=== PATIENT | female | born 1970 | race African-American/Black ===

== ENCOUNTER 2019-05-30 19:21 | Emergency (ER) | payer SELFPAY ==
[2019-05-30] MEDS ORDERED: NA CHLORIDE 0.9% 1,000 ML ONE (20:24)
[2019-05-30] MEDS ORDERED: FAMOTIDINE 20 MG/2 ML VIAL IV ONE (20:35)
--- NOTE | 2019-05-30 20:52 | RAD REPORT ---
EXAM DESCRIPTION: Gregg Single View05/30/2019 8:23 pm CLINICAL HISTORY: cough COMPARISON: none FINDINGS: The lungs appear clear of acute infiltrate. The heart is normal size IMPRESSION: No acute abnormalities displayed
[2019-05-30 20:57] LABS: Absolute Lymphocytes (CBC) 4.3 K/uL (0.7-4.9); Basophils % 0.9 % (0-1.3); Hematocrit 41.1 % (36.0-45.0); MPV 8.3 fL (7.6-11.3); RBC Red Blood Cell Count 4.82 M/uL (3.86-4.86)
--- NOTE | 2019-05-30 20:58 | RAD REPORT ---
EXAM DESCRIPTION: CT - Head Brain Wo Cont - 05/30/2019 8:31 pm CLINICAL HISTORY: Dizziness COMPARISON: None. TECHNIQUE: Computed axial tomography of the head was obtained. IV contrast was not requested. All CT scans are performed using dose optimization technique as appropriate and may include automated exposure control or mA/KV adjustment according to patient size. FINDINGS: An intracranial bleed is not seen . The ventricles are normal in caliber. No extra-axial fluid collection is noted. Fluid within the sinuses/ mastoids is not seen. IMPRESSION: No acute intracranial abnormality is seen. If patient's symptoms persist MRI of the bra in would be recommended.
[2019-05-30 21:04] LABS: Barbiturates NEGATIVE (NEGATIVE); Benzodiazepines NEGATIVE (NEGATIVE); Cocaine NEGATIVE (NEGATIVE); METHAMPHETAM NEGATIVE (NEGATIVE); Methadone NEGATIVE (NEGATIVE); Opiates NEGATIVE (NEGATIVE); Phencyclidine NEGATIVE (NEGATIVE); THC Cannibis NEGATIVE (NEGATIVE)
[2019-05-30 21:10] LABS: Protime INR 1.03
[2019-05-30 21:25] LABS: ALT/SGPT 25 U/L (12-78); AST/SGOT 8 U/L (15-37); Albumin 3.3 g/dL (3.4-5.0); Alkaline Phosphatase 160 U/L (45-117); BUN Blood Urea Nitrogen 12 mg/dL (7-18); Bicarbonate 27 mmol/L (21-32); Bilirubin Direct < 0.1 mg/dL (0-0.2); Bilirubin Total 0.2 mg/dL (0.2-1.0); Glucose Level 378 mg/dL (74-106); Lipase 126 U/L (73-393); Magnesium 2.4 mg/dL (1.8-2.4); NT PRO-BNP 10 pg/mL (<125); Potassium 4.4 mmol/L (3.5-5.1); Protein, Total 8.1 g/dL (6.4-8.2); Sodium Level 137 mmol/L (136-145); Troponin (Emerg Dept Use Only) < 0.02 ng/mL (0.0-0.045)
--- NOTE | 2019-05-30 21:55 | ER ---
Nurse's Notes [facility] Name: Myla Tejeda Age: 49 yrs Sex: Female : 1970 Arrival Date: 05/30/2019 Time: 19:23 Bed 13 Private MD: Diagnosis: Dizziness and giddiness;Functional dyspepsia;Cholelithiasis Presentation: 05/30 19:28 Presenting complaint: Patient states: she has been feeling dizzy since Friday every bb time she gets up she feels like she is going to faint. Pt was at home when symptoms started. Pt states she thinks she may have parasites she noticed something in her stool but she is not sure, She has noticed this for several months. Transition of care: patient was not received from another setting of care. Onset of symptoms was May 26, 2019. Risk Assessment: Do you want to hurt yourself or someone else? Patient reports no desire to harm self or others. Initial Sepsis Screen: Does the patient meet any 2 criteria? No. Patient's initial sepsis screen is negative. Does the patient have a suspected source of infection? No. Patient's initial sepsis screen is negative. Care prior to arrival: None. 19:28 Method Of Arrival: Ambulatory bb 19:28 Acuity: GINA 3 bb Historical: - Allergies: 19:32 Codeine; bb - Home Meds: 19:32 None [Active]; bb - PMHx: 19:32 None; bb - PSHx: 19:32 Tubal ligation; bb - Immunization history:: Adult Immunizations up to date. - Social history:: Smoking status: Patient/guardian denies using tobacco. - Family history:: not pertinent. - Ebola Screening: : No symptoms or risks identified at this time. Screenin:52 Abuse screen: Denies threats or abuse. Nutritional screening: No deficits noted. ea Tuberculosis screening: No symptoms or risk factors identified. Fall Risk None identified. Assessment: 20:51 General: Appears uncomfortable, Behavior is appropriate for age. Pain: Denies pain. ea Neuro: Level of Consciousness is awake, alert, obeys commands, Oriented to person, place, time, situation, Reports dizziness. Cardiovascular: Patient's skin is warm and dry. Respiratory: Airway is patent Respiratory effort is even, unlabored, Respiratory pattern is regular, symmetrical. Derm: Skin is pink, warm \T\ dry. 21:35 Reassessment: Patient and/or family updated on plan of care and expected duration. Pain ea level reassessed. Patient is alert, oriented x 3, equal unlabored respirations, skin warm/dry/pink. 22:49 Reassessment: Patient and/or family updated on plan of care and expected duration. Pain ea level reassessed. Patient is alert, oriented x 3, equal unlabored respirations, skin warm/dry/pink. Discharge instruction given to patient, verbalized the understanding of instruction. Pt left ED ambulatory accompanied by family Patient states feeling better. Vital Signs: 19:32 BP 123 / 74; Pulse 87; Resp 16 S; Temp 98(O); Pulse Ox 98% on R/A; Weight 77.11 kg (R); bb Height 5 ft. 1 in. (154.94 cm) (R); Pain 8/10; 20:47 BP 105 / 66 Supine; Pulse 77; mt 20:47 BP 116 / 68 Sitting; Pulse 90; mt 20:47 BP 110 / 46 Standing; Pulse 80; mt 21:00 BP 108 / 60; Pulse 78; Resp 18; Pulse Ox 99% ; ea 22:45 BP 119 / 73; Pulse 68; Resp 18; Temp 98; Pulse Ox 99% on R/A; ea 19:32 Body Mass Index 32.12 (77.11 kg, 154.94 cm) bb ED Course: 19:23 Patient arrived in ED. ds1 19:31 Triage completed. bb 19:32 Arm band placed on Patient placed in an exam room, on a stretcher, on pulse oximetry. bb Family accompanied patient. 19:39 EKG done, by ED staff, reviewed by Tobias Moreno MD. mt 20:05 Tobias Moreno MD is Attending Physician. azar 20:13 Saumya Morley, RODERICK is Primary Nurse. ea 20:21 XRAY Chest (1 view) In Process Unspecified. EDMS 20:31 CT Head Brain wo Cont In Process Unspecified. EDMS 20:31 CT completed. Patient tolerated procedure well. Patient moved back from CT. bq 20:52 Patient has correct armband on for positive identification. Bed in low position. Call ea light in reach. 21:29 US Abdomen Limited In Process Unspecified. EDMS 21:48 IV discontinued, intact, bleeding controlled, No redness/swelling at site. Pressure ea dressing applied. 21:55 Alireza Cuba MD is Referral Physician. [facility] 22:39 No provider procedures requiring assistance completed. ea Administered Medications: 20:50 Drug: Pepcid 20 mg Route: IVP; Site: right antecubital; ea 22:37 Follow up: Response: No adverse reaction ea 20:51 Drug: NS 0.9% 1000 ml Route: IV; Rate: 1 bolus; Site: right antecubital; ea 21:30 Follow up: Response: No adverse reaction; IV Status: Completed infusion; IV Intake: ea 1000ml 22:10 Drug: Insulin Regular Human 10 units {Co-Signature: (Aby Glaser).} Route: IVP; ea Site: right antecubital; 22:38 Follow up: Response: No adverse reaction ea Intake: 21:30 IV: 1000ml; Total: 1000ml. ea Outcome: 21:55 Discharge ordered by . [facility] 22:51 Discharged to home ambulatory, with family. cassy 22:51 Condition: stable 22:51 Discharge instructions given to patient, Instructed on discharge instructions, follow up and referral plans. medication usage, Demonstrated understanding of instructions, follow-up care, medications, Prescriptions given X 3. 22:54 Patient left the ED. ea Addendum: 06/04/2019 16:54 Addendum: Culture Results: Positive urine culture. Patient was not prescribed i w antibiotics at discharge. Report given to HARRY for further evaluation and then to bench molder for follow up with patient. Phone call Attempt #1 pt not having urinary s/s , no further action needed. Signatures: Dispatcher [employer] [facility] Tobias Moreno MD MD cha Quilty, Betty bq Sanford, Demi ds1 Shea Adkins RN RN bb Williams, Irene, RN RN iw Thompson, Moriah Saumya Tan RN RN ea Winsy Habalo wh
--- NOTE | 2019-05-30 21:56 | EDPHYS ---
Physician Documentation [facility] Name: Mlya Tejeda Age: 49 yrs Sex: Female : 1970 Arrival Date: 05/30/2019 Time: 19:23 Bed 13 Private MD: ED Physician Tobias Moreno HPI: 05/30 20:23 This 49 yrs old Black Female presents to ER via Ambulatory with complaints of Dizziness.azar 20:23 The patient presents with dizziness, generalized weakness. Onset: The symptoms/episode azar began/occurred 3 day(s) ago. Context: occurred at an unknown location. Associated signs and symptoms: Pertinent positives: abdominal pain. Severity of symptoms: At their worst the symptoms were mild moderate in the emergency department the symptoms are unchanged. Patient's baseline: Neuro: alert and fully oriented. The patient has not experienced similar symptoms in the past. Historical: - Allergies: 19:32 Codeine; bb - Home Meds: 19:32 None [Active]; bb - PMHx: 19:32 None; bb - PSHx: 19:32 Tubal ligation; bb - Immunization history:: Adult Immunizations up to date. - Social history:: Smoking status: Patient/guardian denies using tobacco. - Family history:: not pertinent. - Ebola Screening: : No symptoms or risks identified at this time. ROS: 20:23 Constitutional: Negative for fever, chills, and weight loss, Eyes: Negative for injury, azar pain, redness, and discharge, ENT: Negative for injury, pain, and discharge, Neck: Negative for injury, pain, and swelling, Cardiovascular: Negative for chest pain, palpitations, and edema, Respiratory: Negative for shortness of breath, cough, wheezing, and pleuritic chest pain, Back: Negative for injury and pain, : Negative for injury, bleeding, discharge, and swelling, MS/Extremity: Negative for injury and deformity, Skin: Negative for injury, rash, and discoloration, Neuro: Negative for headache, weakness, numbness, tingling, and seizure, Psych: Negative for depression, anxiety, suicide ideation, homicidal ideation, and hallucinations, Allergy/Immunology: Negative for hives, rash, and allergies, Endocrine: Negative for neck swelling, polydipsia, polyuria, polyphagia, and marked weight changes, Hematologic/Lymphatic: Negative for swollen nodes, abnormal bleeding, and unusual bruising. 20:23 Abdomen/GI: Positive for abdominal pain, of the epigastric area. Exam: 20:23 Constitutional: This is a well developed, well nourished patient who is awake, alert, azar and in no acute distress. Head/Face: Normocephalic, atraumatic. Eyes: Pupils equal round and reactive to light, extra-ocular motions intact. Lids and lashes normal. Conjunctiva and sclera are non-icteric and not injected. Cornea within normal limits. Periorbital areas with no swelling, redness, or edema. ENT: Nares patent. No nasal discharge, no septal abnormalities noted. Tympanic membranes are normal and external auditory canals are clear. Oropharynx with no redness, swelling, or masses, exudates, or evidence of obstruction, uvula midline. Mucous membranes moist. Neck: Trachea midline, no thyromegaly or masses palpated, and no cervical lymphadenopathy. Supple, full range of motion without nuchal rigidity, or vertebral point tenderness. No Meningismus. Chest/axilla: Normal chest wall appearance and motion. Nontender with no deformity. No lesions are appreciated. Cardiovascular: Regular rate and rhythm with a normal S1 and S2. No gallops, murmurs, or rubs. Normal PMI, no JVD. No pulse deficits. Respiratory: Lungs have equal breath sounds bilaterally, clear to auscultation and percussion. No rales, rhonchi or wheezes noted. No increased work of breathing, no retractions or nasal flaring. Back: No spinal tenderness. No costovertebral tenderness. Full range of motion. Skin: Warm, dry with normal turgor. Normal color with no rashes, no lesions, and no evidence of cellulitis. MS/ Extremity: Pulses equal, no cyanosis. Neurovascular intact. Full, normal range of motion. Neuro: Awake and alert, GCS 15, oriented to person, place, time, and situation. Cranial nerves II-XII grossly intact. Motor strength 5/5 in all extremities. Sensory grossly intact. Cerebellar exam normal. Normal gait. 20:23 Abdomen/GI: Inspection: abdomen appears normal, Bowel sounds: normal, Palpation: mild abdominal tenderness, in the epigastric area and right upper quadrant, Liver: no appreciated palpable abnormalities, Hernia: not appreciated. Vital Signs: 19:32 BP 123 / 74; Pulse 87; Resp 16 S; Temp 98(O); Pulse Ox 98% on R/A; Weight 77.11 kg (R); bb Height 5 ft. 1 in. (154.94 cm) (R); Pain 8/10; 20:47 BP 105 / 66 Supine; Pulse 77; mt 20:47 BP 116 / 68 Sitting; Pulse 90; mt 20:47 BP 110 / 46 Standing; Pulse 80; mt 21:00 BP 108 / 60; Pulse 78; Resp 18; Pulse Ox 99% ; ea 22:45 BP 119 / 73; Pulse 68; Resp 18; Temp 98; Pulse Ox 99% on R/A; ea 19:32 Body Mass Index 32.12 (77.11 kg, 154.94 cm) bb MDM: 20:05 [facility] 20:23 Data reviewed: vital signs, nurses notes, lab test result(s), EKG, radiologic studies, [facility] CT scan, plain films, ultrasound. 05/30 20:06 Order name: Basic Metabolic Panel; Complete Time: 21:32 [facility] 05/30 20:06 Order name: CBC with Diff; Complete Time: 21:32 [facility] 05/30 20:06 Order name: LFT's; Complete Time: 21:32 [facility] 05/30 20:06 Order name: Magnesium; Complete Time: 21:32 [facility] 05/30 20:06 Order name: NT PRO-BNP; Complete Time: 21:32 [facility] 05/30 20:06 Order name: PT-INR; Complete Time: 21:32 [facility] 05/30 20:06 Order name: Troponin (emerg Dept Use Only); Complete Time: 21:32 [facility] 05/30 20:06 Order name: XRAY Chest (1 view); Complete Time: 21:32 [facility] 05/30 20:06 Order name: Urine Culture [facility] 05/30 20:07 Order name: UDS; Complete Time: 21:32 [facility] 05/30 20:34 Order name: Lipase; Complete Time: 21:32 EDMS 05/30 20:49 Order name: Urine Dipstick--Ancillary (enter results) [facility] 05/30 20:49 Order name: Urine --Ancillary (enter results) [facility] 05/30 20:06 Order name: EKG; Complete Time: 20:07 [facility] 05/30 20:06 Order name: Cardiac monitoring; Complete Time: 20:19 [facility] 05/30 20:06 Order name: EKG - Nurse/Tech; Complete Time: 20:20 [facility] 05/30 20:06 Order name: IV Saline Lock; Complete Time: 20:20 [facility] 05/30 20:06 Order name: Labs collected and sent; Complete Time: 20:20 [facility] 05/30 20:06 Order name: O2 Per Protocol; Complete Time: 20:20 [facility] 05/30 20:06 Order name: O2 Sat Monitoring; Complete Time: 20:20 [facility] 05/30 20:06 Order name: CT Head Brain wo Cont; Complete Time: 21:32 [facility] 05/30 20:06 Order name: Urine Dipstick-Ancillary (obtain specimen); Complete Time: 20:49 [facility] 05/30 20:22 Order name: US Abdomen Limited [facility] 05/30 20:23 Order name: Orthostatics; Complete Time: 20:47 [facility] Administered Medications: 20:50 Drug: Pepcid 20 mg Route: IVP; Site: right antecubital; ea 22:37 Follow up: Response: No adverse reaction ea 20:51 Drug: NS 0.9% 1000 ml Route: IV; Rate: 1 bolus; Site: right antecubital; ea 21:30 Follow up: Response: No adverse reaction; IV Status: Completed infusion; IV Intake: ea 1000ml 22:10 Drug: Insulin Regular Human 10 units {Co-Signature: saira (Aby Person.} Route: IVP; ea Site: right antecubital; 22:38 Follow up: Response: No adverse reaction ea Disposition: 05/30/19 21:55 Discharged to Home. Impression: Dizziness and giddiness, Functional dyspepsia, Cholelithiasis. - Condition is Stable. - Discharge Instructions: Abdominal Pain, Adult, Dizziness, Cholelithiasis, Cholelithiasis, [id number], Abdominal Pain, Adult, Imtl-[id number], Aspirin and Your Heart, Dizziness, [id number]-[id number]. - Prescriptions for Meclizine 25 mg Oral Tablet - take 1 tablet by ORAL route every 8 hours As needed; 30 tablet. Pepcid 20 mg Oral Tablet - take 1 tablet by ORAL route every 12 hours for 10 days; 20 tablet. Bentyl 20 mg Oral Tablet - take 1 tablet by ORAL route every 6 hours As needed; 20 tablet. - Medication Reconciliation Form, Thank You Letter, Antibiotic Education, Prescription Opioid Use form. - Follow up: Private Physician; When: 2 - 3 days; Reason: Recheck today's complaints, Continuance of care, Re-evaluation by your physician. Follow up: Alireza Cuba MD; When: 2 - 3 days; Reason: Recheck today's complaints, Continuance of care, Re-evaluation by your physician. - Problem is new. - Symptoms have improved. Signatures: Dispatcher [employer] [facility] Tobias Moreno MD MD cha Ballard, Brenda RN RN Saumya Tran RN RN cassy Colindresjaylon [facility] Corrections: (The following items were deleted from the chart) 20:34 20:23 LIPASE+C.LAB.BRZ ordered. [facility] 21:55 21:55 05/30/2019 21:55 Discharged to Home. Impression: Dizziness and giddiness; azar Functional dyspepsia; Cholelithiasis. Condition is Stable. Discharge Instructions: Abdominal Pain, Adult, Dizziness, Abdominal Pain, Adult, [id number], Aspirin and Your Heart, Dizziness, [id number]-[id number]. Prescriptions for Meclizine 25 mg Oral Tablet - take 1 tablet by ORAL route every 8 hours As needed; 30 tablet, Pepcid 20 mg Oral Tablet - take 1 tablet by ORAL route every 12 hours for 10 days; 20 tablet. and Forms are Medication Reconciliation Form, Thank You Letter, Antibiotic Education, Prescription Opioid Use. Follow up: Private Physician; When: 2 - 3 days; Reason: Recheck today's complaints, Continuance of care, Re-evaluation by your physician. Problem is new. Symptoms have improved. azar 22:54 21:55 05/30/2019 21:55 Discharged to Home. Impression: Dizziness and giddiness; ea Functional dyspepsia; Cholelithiasis. Condition is Stable. Discharge Instructions: Abdominal Pain, Adult, Dizziness, Abdominal Pain, Adult, [id number], Aspirin and Your Heart, Dizziness, [id number]. Prescriptions for Meclizine 25 mg Oral Tablet - take 1 tablet by ORAL route every 8 hours As needed; 30 tablet, Pepcid 20 mg Oral Tablet - take 1 tablet by ORAL route every 12 hours for 10 days; 20 tablet. and Forms are Medication Reconciliation Form, Thank You Letter, Antibiotic Education, Prescription Opioid Use. Follow up: Private Physician; When: 2 - 3 days; Reason: Recheck today's complaints, Continuance of care, Re-evaluation by your physician. Follow up: Alireza Cuba; When: 2 - 3 days; Reason: Recheck today's complaints, Continuance of care, Re-evaluation by your physician. Problem is new. Symptoms have improved. azar
[2019-05-30 22:03] LABS: Urine Blood NEGATIVE (NEG); Urine Glucose 2+ (NEG); Urine Protein NEGATIVE (NEG)
[2019-05-30] MEDS ORDERED: INSULIN -REGULAR HUMAN 50 UNIT/0.5 ML ML ONE (22:04)
[2019-05-31 00:31] VITALS: TEMP 98
[2019-05-31 00:34] VITALS: O2SAT 99
[2019-05-31 00:35] VITALS: BP 119/73
--- NOTE | 2019-05-31 08:14 | RAD REPORT ---
EXAM DESCRIPTION: US - Abdomen Exam Limited - 05/30/2019 9:27 pm CLINICAL HISTORY: ABD PAIN COMPARISON: No comparisons FINDINGS: Gallbladder is contracted. Patient was not fasting for the examination. Multiple shadowing gallstones are present within the lumen. No wall thickening or pericholecystic fluid. No common duct stone or biliary tree dilatation identified. IMPRESSION: Multiple gallstones within a contracted gallbladder. No wall thickening or pericholecyst ic fluid. No biliary tree abnormality. Preliminary findings provided at the time of the study.
--- NOTE | 2019-05-31 10:17 | EKG ---
Test Date: 2019-05-30 Test Time: 19:36:20 Crib Attendant: RAMANDEEP MEASUREMENT RESULTS: Intervals: Rate: 86 CO: 150 QRSD: 86 QT: 374 QTc: 447 [place]: P: 51 CO: 150 QRS: 23 T: 16 INTERPRETIVE STATEMENTS: Normal sinus rhythm Low voltage QRS Borderline ECG No previous ECG available for comparison Electronically Signed On 05-31-19 10:17:06 PERMIT AGENT by Guillaume Lugo
== END 2019-05-30 22:54 | disposition home or self-care (01) ==
LOC: ER 19:21
DX: K30 Functional dyspepsia (principal); K80.20 Calculus of gallbladder without cholecystitis without obstruction; Z88.5 Allergy status to narcotic agent
CPT/HCPCS: 36415; 70450; 71045; 76705; 80048; 80076; 80307; 81003; 81025; 83690; 83735; 83880; 84484; 85025; 85610; 87077; 87086; 87088; 87186; 93005; 96361; 96374; 96375; 99284; J7030

== ENCOUNTER 2023-05-07 17:51 | Emergency (ER) | payer SELFPAY ==
[2023-05-07 18:37] LABS: Absolute Lymphocytes (CBC) 4.2 K/uL (0.7-4.9); Hematocrit 42.8 % (36.0-45.0); Lymphocytes % 35.7 % (15.3-44.8); MCV 85.2 fL (80-100); Platelets 314 thou/uL (152-406); RBC Red Blood Cell Count 5.03 M/uL (3.86-4.86)
[2023-05-07] MEDS ORDERED: FAMOTIDINE 20 MG/2 ML VIAL IV ONE (18:41)
[2023-05-07] MEDS ORDERED: NA CHLORIDE 0.9% 1,000 ML ONE (18:41)
[2023-05-07] MEDS ORDERED: MORPHINE 4 MG/ML SYR ONE (18:41)
[2023-05-07 18:52] LABS: Albumin 3.4 g/dL (3.4-5.0); Bilirubin Total 0.4 mg/dL (0.2-1.0); Protein, Total 8.4 g/dL (6.4-8.2); Troponin High Sensitivity 3.1 pg/mL (<58.9)
[2023-05-07] MEDS ORDERED: ONDANSETRON 4 MG/2 ML VIAL ONE ×2 (19:04→19:43)
[2023-05-07 19:31] LABS: Potassium 4.4 mEq/L (3.5-5.1)
[2023-05-07] MEDS ORDERED: METOCLOPRAMIDE 10 MG/2mL INJ ONE (19:54)
[2023-05-07] MEDS ORDERED: DIPHENHYDRAMINE 50 MG/ML VIAL ONE (19:54)
--- NOTE | 2023-05-07 20:09 | RAD REPORT ---
EXAM DESCRIPTION: CTAbdomen Pelvis W Contrast - 05/07/2023 7:53 pm CLINICAL HISTORY: Abdominal pain. ABD PAIN COMPARISON: No comparisons TECHNIQUE: Biphasic CT imaging of the abdomen and pelvis was performed with 100 ml non-ionic IV cont rast. All CT scans are performed using dose optimization technique as appropriate and may include automated exposure control or mA/KV adjustment according to patient size. FINDINGS: The lung bases are clear.Cholelithiasis. The liver, spleen, pancreas, adrenal glands and right kidney are within normal limits. 4 mm stone inf erior calyx left kidney without hydronephrosis No bowel obstruction, free air, free fluid or abscess. The appendix is normal. No evidence of signi ficant lymphadenopathy. No suspicious bony findings. IMPRESSION: Cholelithiasis. 4 mm stone inferior left kidney without hydronephrosis.
--- NOTE | 2023-05-07 21:39 | RAD REPORT ---
EXAM DESCRIPTION: US - Abdomen Exam Limited - 05/07/2023 9:27 pm CLINICAL HISTORY: ruq pain COMPARISON: Abdomen Exam Limited dated 05/30/2019 FINDINGS: The gallbladder demonstrates multiple shadowing stones. No pericholecystic fluid or gallbl adder wall thickening. The common bile duct is normal measuring 4 mm. The liver demonstrates no findings of intrahepatic biliary dilatation. IMPRESSION: Cholelithiasis.
--- NOTE | 2023-05-07 22:32 | EDPHYS ---
Physician Documentation [facility] Name: Myla Tejeda Age: 53 yrs Sex: Female : 1970 Arrival Date: 05/07/2023 Time: 17:51 Bed 12 Private MD: ED Physician Maxi Castaneda HPI: 05/07 18:17 This 53 yrs old Black Female presents to ER via Ambulatory with complaints of Abdominal rt Pain. 18:17 Patient reports an intermittent epigastric pain for the past several months. She states rt that the pain again recurred today after lunch, stating that was more intense than usual and has been more constant. Pain is localized to the epigastrium. Sharp in nature. Denies aggravating or alleviating factors. States that the pain radiates to the back. No other radiation.. 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 - Social history:: Smoking status: Patient denies any tobacco usage or history of. - Family history:: not pertinent. ROS: 18:17 Constitutional: Negative for fever, chills, and weight loss, Cardiovascular: Negative rt for chest pain, palpitations, and edema, Respiratory: Negative for shortness of breath, cough, wheezing, and pleuritic chest pain, MS/Extremity: Negative for injury and deformity, Skin: Negative for injury, rash, and discoloration, Neuro: Negative for headache, weakness, numbness, tingling, and seizure, Psych: Negative for depression, anxiety, suicide ideation, homicidal ideation, and hallucinations, 18:17 Abdomen/GI: Positive for abdominal pain, Negative for nausea, vomiting, and diarrhea, Exam: 18:17 Constitutional: This is a well developed, well nourished patient who is awake, alert, rt and in no acute distress. Head/Face: Normocephalic, atraumatic. Chest/axilla: Normal chest wall appearance and motion. Nontender with no deformity. No lesions are appreciated. Cardiovascular: Regular rate and rhythm with a normal S1 and S2. No gallops, murmurs, or rubs. Normal PMI, no JVD. No pulse deficits. Respiratory: Lungs have equal breath sounds bilaterally, clear to auscultation and percussion. No rales, rhonchi or wheezes noted. No increased work of breathing, no retractions or nasal flaring. Skin: Warm, dry with normal turgor. Normal color with no rashes, no lesions, and no evidence of cellulitis. MS/ Extremity: Pulses equal, no cyanosis. Neurovascular intact. Full, normal range of motion. Neuro: Awake and alert, GCS 15, oriented to person, place, time, and situation. Cranial nerves II-XII grossly intact. Motor strength 5/5 in all extremities. Sensory grossly intact. Cerebellar exam normal. Normal gait. Psych: Awake, alert, with orientation to person, place and time. Behavior, mood, and affect are within normal limits. 18:17 Abdomen/GI: Tenderness to the epigastrium to right upper quadrant with mild guarding, no rebound, distention, 18:44 ECG was reviewed by the Attending Physician. rt Vital Signs: 17:57 BP 165 / 111; Pulse 89; Resp 18; Temp 98.7; Pulse Ox 100% on R/A; Weight 90.72 kg; db Height 5 ft. 1 in. ; Pain 10/10; 22:38 BP 137 / 86; Pulse 74; Resp 16; Pulse Ox 98% ; cp4 17:57 Body Mass Index 37.79 (90.72 kg, 154.94 cm) db 17:57 Pain Scale: Adult db MDM: 18:02 Patient medically screened. rt 22:29 ED course: EXAM DESCRIPTION: US - Abdomen Exam Limited - 05/07/2023 9:27 pm CLINICAL sp4 HISTORY: ruq pain COMPARISON: Abdomen Exam Limited dated 05/30/2019 FINDINGS: The gallbladder demonstrates multiple shadowing stones. No pericholecystic fluid or gallbladder wall thickening. The common bile duct is normal measuring 4 mm. The liver demonstrates no findings of intrahepatic biliary dilatation. IMPRESSION: Cholelithiasis. . ED course: EXAM DESCRIPTION: CTAbdomen Pelvis W Contrast - 05/07/2023 7:53 pm CLINICAL HISTORY: Abdominal pain. ABD PAIN COMPARISON: No comparisons TECHNIQUE: Biphasic CT imaging of the abdomen and pelvis was performed with 100 ml non-ionic IV contrast. All CT scans are performed using dose optimization technique as appropriate and may include automated exposure control or mA/KV adjustment according to patient size. FINDINGS: The lung bases are clear.Cholelithiasis. The liver, spleen, pancreas, adrenal glands and right kidney are within normal limits. 4 mm stone inferior calyx left kidney without hydronephrosis No bowel obstruction, free air, free fluid or abscess. The appendix is normal. No evidence of significant lymphadenopathy. No suspicious bony findings. IMPRESSION: Cholelithiasis. 4 mm stone inferior left kidney without hydronephrosis. . 22:32 Differential Diagnosis altered mental status, sepsis, flu. Data reviewed: vital signs, sp4 nurses notes, old medical records, lab test result(s), radiologic studies, CT scan, ultrasound. Consideration of Admission/Observation Escalation of care including admission/observation considered. ED course: Patient stable for discharge home, pain is gone. 12/ 18:29 Order name: Comprehensive Metabolic Panel; Complete Time: 19:39 EDMS 12/ 18:29 Order name: Troponin High Sensitivity; Complete Time: 19:39 EDMS 12 18:29 Order name: Lipase; Complete Time: 19:39 EDMS 05/07 18:29 Order name: CBC with Automated Diff; Complete Time: 18:48 EDMS 05/07 18:07 Order name: CT Abd/Pelvis - IV Contrast Only; Complete Time: 20:16 rt 12/06 20:01 Order name: US Abdomen Limited; Complete Time: 22:20 rt 12/ 18:07 Order name: EKG; Complete Time: 18:27 rt 12/06 18:07 Order name: IV Saline Lock; Complete Time: 18:35 rt 1206 18:07 Order name: Labs collected and sent; Complete Time: 18:36 rt 1206 18:07 Order name: EKG - Nurse/Tech; Complete Time: 18:36 rt EC:44 Rate is 88 beats/min. Rhythm is regular, Normal Sinus Rhythm with No ectopy. QRS Finger rt is Normal. WV interval is normal. QRS interval is normal. QT interval is normal. No Q waves. T waves are Normal. No ST changes noted. Interpreted by me. Administered Medications: 18:35 Drug: NS 0.9% IV 1000 ml IV at 1 bolus Per protocol; 1000 mL bolus Route: IV; Rate: 1 cp4 bolus; Site: right antecubital; 22:41 Follow up: Response: No adverse reaction; IV Status: Completed infusion cp4 18:35 Drug: Famotidine IVP 20 mg IVP once; dilute with 10 mL 0.9% NaCl; give over 2 minutes cp4 Route: IVP; Site: right antecubital; 22:41 Follow up: Response: No adverse reaction cp4 18:35 Drug: morphine IVP or IV 4 mg IVP once over 4 mins Route: IVP; Infused Over: 4 mins; cp4 Site: right antecubital; 19:45 Follow up: Response: Nausea is increased; Vomiting increased cp4 18:57 Drug: Ondansetron IVP 4 mg IVP once; over 2 minutes Route: IVP; Site: right antecubital;cp4 19:44 Follow up: Response: No adverse reaction cp4 19:30 Not Given (Patient Refused): ondansetron 4 mg IVP once; over 2 minutes cp4 19:44 Drug: metoCLOPramide IVP 10 mg IVP once; over 1 to 2 minutes Route: IVP; Site: right cp4 antecubital; 22:40 Follow up: Response: No adverse reaction cp4 19:44 Drug: diphenhydrAMINE IVP 25 mg IVP once Route: IVP; Site: right antecubital; cp4 22:39 Follow up: Response: No adverse reaction cp4 Disposition Summary: 05/07/23 22:31 Discharge Ordered Notes: Location: Home sp4 Problem: new sp4 Symptoms: have improved sp4 Condition: Stable sp4 Diagnosis - Other cholelithiasis without obstruction sp4 - Biliary colic, acute biliary colic, cholelithiasis without cholecystitis sp4 Followup: sp4 - With: Alireza Cuba MD - When: 7 - 10 days - Reason: Recheck today's complaints Discharge Instructions: - Discharge Summary Sheet sp4 - Cholelithiasis, [id number] sp4 Forms: - Patient Portal Instructions sp4 Prescriptions: - Ibuprofen 800 mg Oral Tablet - take 1 tablet ORAL route every 8 hours As needed take with food; 30 tablet; sp4 Refills: 0, Product Selection Permitted - promethazine 25 mg Oral tablet - take 1 tablet ORAL route every 6 hours As needed PRN nausea; 30 tablet; sp4 Refills: 0, Product Selection Permitted Signatures: Dispatcher [employer] Nora Hennessy RN RN Brian Sorensen MD MD rt Potepalov Maxi, MD MD sp4 Brielle Marroquin cp4 Corrections: (The following items were deleted from the chart) 18:41 18:27 CBC+H.LAB.BRZ ordered. EDMS EDMS 19:45 18:27 COMPREHENSIVE METABOLIC PANEL+C.LAB.BRZ ordered. EDMS EDMS :45 18:27 LIPASE+C.LAB.BRZ ordered. EDMS EDMS :45 18:27 Troponin High Sensitivity+C.LAB.BRZ ordered. EDMS EDMS
--- NOTE | 2023-05-07 22:32 | ER ---
Nurse's Notes [facility] Name: Myla Tejeda Age: 53 yrs Sex: Female : 1970 Arrival Date: 05/07/2023 Time: 17:51 Bed 12 Private MD: Diagnosis: Other cholelithiasis without obstruction;Biliary colic, acute biliary colic, cholelithiasis without cholecystitis Presentation: 05/07 17:57 Chief complaint: Patient states: MIDDLE UPPER ABD PAIN STARTED TODAY AT NOON. DENIES db N/V. Coronavirus screen: Client denies travel out of the [place] in the last 14 days. At this time, the client does not indicate any symptoms associated with coronavirus-19. Ebola Screen: Patient negative for fever greater than or equal to 101.5 degrees Fahrenheit, and additional compatible Ebola Virus Disease symptoms Patient denies exposure to infectious person. Patient denies travel to an Ebola-affected area in the 21 days before illness onset. No symptoms or risks identified at this time. Initial Sepsis Screen: Does the patient meet any 2 criteria? No. Patient's initial sepsis screen is negative. Does the patient have a suspected source of infection? No. Patient's initial sepsis screen is negative. Risk Assessment: Do you want to hurt yourself or someone else? Patient reports no desire to harm self or others. Onset of symptoms was May 07, 2023 at 12:00. 17:57 Method Of Arrival: Ambulatory db 17:57 Acuity: GINA 3 db Triage Assessment: 18:00 General: Appears in no apparent distress. comfortable, Behavior is calm, cooperative. db Pain: Complains of pain in abdomen. Neuro: Level of Consciousness is awake, alert, obeys commands, Oriented to person, place, time, situation. Respiratory: Airway is patent Respiratory effort is even, unlabored, Respiratory pattern is regular, symmetrical. GI: Abdomen is. 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 - Social history:: Smoking status: Patient denies any tobacco usage or history of. - Family history:: not pertinent. Screenin:42 [facility] ED Fall Risk Assessment (Adult) History of falling in the last 3 months, cp4 including since admission No falls in past 3 months (0 pts) Confusion or Disorientation No (0 pts) Intoxicated or Sedated No (0 pts) Impaired Gait No (0 pts) Mobility Assist Device Used No (0 pt) Altered Elimination No (0 pt) Score/Fall Risk Level 0 - 2 = Low Risk Oriented to surroundings, Maintained a safe environment, Educated pt \T\ family on fall prevention, incl call for assistance when getting out of bed, Hourly rounding (assess needs \T\ fall precautionary measures) done. Abuse screen: Denies threats or abuse. Nutritional screening: No deficits noted. Tuberculosis screening: No symptoms or risk factors identified. Assessment: 18:42 General: Appears in no apparent distress. Behavior is calm, cooperative, appropriate cp4 for age. 22:39 GI: Bowel sounds present X 4 quads. Abdomen is tender to palpation X 4 quads. cp4 Vital Signs: 17:57 BP 165 / 111; Pulse 89; Resp 18; Temp 98.7; Pulse Ox 100% on R/A; Weight 90.72 kg; db Height 5 ft. 1 in. ; Pain 10/10; 22:38 BP 137 / 86; Pulse 74; Resp 16; Pulse Ox 98% ; cp4 17:57 Body Mass Index 37.79 (90.72 kg, 154.94 cm) db 17:57 Pain Scale: Adult db ED Course: 17:53 Patient arrived in ED. mr 17:54 Brian Ray MD is Attending Physician. rt 18:00 Triage completed. db 18:00 Arm band placed on. db 18:11 Brielle Marroquin is Primary Nurse. cp4 18:42 Bed in low position. Call light in reach. Side rails up X 1. cp4 18:42 No provider procedures requiring assistance completed. Inserted saline lock: 20 gauge cp4 in right antecubital area, using aseptic technique. Blood collected. 19:54 CT Abd/Pelvis - IV Contrast Only In Process Unspecified. EDMS 20:10 Attending Physician role handed off by Brian Ray MD sp4 20:10 Maxi Castaneda MD is Attending Physician. sp4 21:29 US Abdomen Limited In Process Unspecified. EDMS 22:30 Alireza Cuba MD is Referral Physician. sp4 22:38 Provided Education on: gallstones. cp4 22:38 intact, bleeding controlled, No redness/swelling at site. Pressure dressing applied. cp4 Administered Medications: 18:35 Drug: NS 0.9% IV 1000 ml IV at 1 bolus Per protocol; 1000 mL bolus Route: IV; Rate: 1 cp4 bolus; Site: right antecubital; 22:41 Follow up: Response: No adverse reaction; IV Status: Completed infusion cp4 18:35 Drug: Famotidine IVP 20 mg IVP once; dilute with 10 mL 0.9% NaCl; give over 2 minutes cp4 Route: IVP; Site: right antecubital; 22:41 Follow up: Response: No adverse reaction cp4 18:35 Drug: morphine IVP or IV 4 mg IVP once over 4 mins Route: IVP; Infused Over: 4 mins; cp4 Site: right antecubital; 19:45 Follow up: Response: Nausea is increased; Vomiting increased cp4 18:57 Drug: Ondansetron IVP 4 mg IVP once; over 2 minutes Route: IVP; Site: right antecubital;cp4 19:44 Follow up: Response: No adverse reaction cp4 19:30 Not Given (Patient Refused): ondansetron 4 mg IVP once; over 2 minutes cp4 19:44 Drug: metoCLOPramide IVP 10 mg IVP once; over 1 to 2 minutes Route: IVP; Site: right cp4 antecubital; 22:40 Follow up: Response: No adverse reaction cp4 19:44 Drug: diphenhydrAMINE IVP 25 mg IVP once Route: IVP; Site: right antecubital; cp4 22:39 Follow up: Response: No adverse reaction cp4 Medication: 18:42 VIS not applicable for this client. cp4 Outcome: 22:31 Discharge ordered by . sp4 22:38 Discharged to home via wheelchair, cp4 22:38 Condition: stable 22:38 Discharge instructions given to patient, Instructed on discharge instructions, follow up and referral plans. Demonstrated understanding of instructions, follow-up care, medications, Prescriptions given X 2, 22:41 Patient left the ED. cp4 Signatures: Dispatcher [employer] EDKY Merlene Chaudhari, Jordan Ortega mr Nora Pruett, RODERICK RN db Brian Ray MD MD rt Maxi Castaneda MD MD sp4 Brielle Marroquin cp4
[2023-05-07 22:55] VITALS: TEMP 98.7
[2023-05-07 22:59] VITALS: BP 137/86; O2SAT 98
== END 2023-05-07 22:41 | disposition home or self-care (01) ==
LOC: ER 17:51
DX: K80.80 Other cholelithiasis without obstruction (principal); K80.50 Calculus of bile duct without cholangitis or cholecystitis without obstruction; Z88.5 Allergy status to narcotic agent
CPT/HCPCS: 36415; 74177; 76705; 80053; 83690; 84484; 85025; 93005; 96361; 96374; 96375; 99284; J1200; J2405; J2765; J7030; Q9967

== ENCOUNTER 2024-03-04 18:38 | Emergency (ER) | payer SELFPAY ==
[2024-03-04] MEDS ORDERED: KETOROLAC 30 MG/ML INJ ONE (19:06)
[2024-03-04] MEDS ORDERED: NA CHLORIDE 0.9% 1,000 ML ONE (19:06)
[2024-03-04 19:44] LABS: PT Prothrombin Time 13.9 SECONDS (9.4-12.5); Protime INR 1.25
[2024-03-04 19:48] LABS: ALT/SGPT 23 U/L (13-56); Albumin/Globulin Ratio 0.6 (1.1-1.8); Alkaline Phosphatase 109 U/L (45-117); Anion Gap 8.5 mEq/L (5.0-15.0); BUN Blood Urea Nitrogen 13 mg/dL (7-18); Bicarbonate 26 mEq/L (21-32); Bilirubin Total 0.4 mg/dL (0.2-1.0); Globulin 5.2 g/dL (2.3-3.5); Glomerular Filtration Rate 83 ml/min (=/>90); Glucose Level 301 mg/dL (74-106); Potassium 3.5 mEq/L (3.5-5.1); Protein, Total 8.2 g/dL (6.4-8.2); Sodium Level 135 mEq/L (136-145)
[2024-03-04 19:50] LABS: AST/SGOT < 10 U/L (15-37); SARS-CoV-2 Antigen CONTROL BLUE LINE VIS/BG OK; SARS-CoV-2 Antigen Rapid Res Negative (Negative)
[2024-03-04 19:52] LABS: Absolute Basophils 0.1 K/uL (0-0.5); Absolute Eosinophils 0.1 K/uL (0-0.5); Absolute Lymphocytes (CBC) 2.9 K/uL (0.7-4.9); Absolute Monocytes 1.3 K/uL (0.1-1.3); Absolute Neutrophil 8.2 K/uL (1.8-8.0); Basophils % 0.6 % (0-1.3); Eosinophils % 0.5 % (0-4.4); Hematocrit 38.2 % (36.0-45.0); Hemoglobin 12.6 g/dL (12.0-15.0); Lymphocytes % 23.1 % (15.3-44.8); MCH 28.1 pg (27.0-35.0); MCV 85.1 fL (80-100); MPV 8.6 fL (7.6-11.3); Monocytes % 10.4 % (3.3-12.3); Neutrophils % 65.4 % (41.7-73.7); Platelets 286 thou/uL (152-406); RBC Red Blood Cell Count 4.49 M/uL (3.86-4.86); Red Cell Distribution Width 12.6 % (12.1-15.2)
[2024-03-04 20:42] LABS: Specific Gravity > 1.030 (1.005-1.030); Sqamous Epithelial <5 /HPF (None Seen); Urine Bacteria <20 /HPF (<20); Urine Bilirubin NEGATIVE (Negative); Urine Blood Trace (Negative); Urine Clarity Extremely Turbid (Clear); Urine Color Yellow (Yellow); Urine Culture Reflex Order REFLEXED; Urine Glucose 4+ (Over) (Negative); Urine Ketones 2+ (Negative); Urine Microscopic Reflex YN ORDER UMIC; Urine Nitrite 2+ (Negative); Urine Protein TRACE (Negative); Urine Urobilinogen Normal (Normal); Urine WBC >50 /HPF (<5); Urine WBC Clump Few /HPF (None Seen); Urine pH 5.5 (5.0-7.0)
--- NOTE | 2024-03-04 21:00 | RAD REPORT ---
EXAMINATION: CT ABDOMEN AND PELVIS WITH CONTRAST CLINICAL INDICATION: ABD PAIN TECHNIQUE: CT abdomen and pelvis was performed, after the administration of IV contrast, as per [facility] protocol. Axial, sagittal and coronal reconstructions were obtained. One or more of the following dose reduction techniques were used: Automated exposure control, adjustment of the mA and k V according to patient size, and iterative reconstruction. Unless otherwise specified, incidental findings do not require dedicated imaging follow-up. COMPARISON: No prior exam. FINDINGS: LOWER CHEST: The visualized lung bases are clear. LIVER: Normal in size and contour. No focal lesion. Cholecystomy clips SPLEEN: Normal size. No focal lesion. PANCREAS: No mass, ductal dilation, or cadence-pancreatic fluid. ADRENALS: Normal; no mass. KIDNEYS: 4 mm stone left kidney. Mild inflammation is seen surrounding the inferior left kidney as we ll as the left proximal ureter suggesting infection. GASTROINTESTINAL TRACT: No evidence of free air, significant intra-abdominal free fluid, bowel obstru ction or abscess. APPENDIX: Normal appendix. LYMPH NODES: No lymphadenopathy. MUSCULOSKELETAL: No acute or suspicious osseous abnormality. ADDITIONAL FINDINGS: None. IMPRESSION: Left-sided ascending urinary tract infection suspected with early pyelonephritis in the inferior left kidney possible.No obstructing calculus. 4 mm calculus is present left kidney.
--- NOTE | 2024-03-04 21:07 | ER ---
Nurse's Notes [facility] Name: Myla Tejeda Age: 53 yrs Sex: Female : 1970 Arrival Date: 03/04/2024 Time: 18:38 Bed 6 Private MD: Diagnosis: UTI/ Urinary tract infection, site not specified;Calculus of kidney Presentation: 03/04 18:46 Chief complaint: Patient states: Fever, body aches, N/V/D, L sided abdominal pain since ll1 Friday night. Coronavirus screen: Client denies travel out of the [place] in the last 14 days. At this time, the client does not indicate any symptoms associated with coronavirus-19. Ebola Screen: Patient denies travel to an Ebola-affected area in the 21 days before illness onset. Initial Sepsis Screen: Does the patient meet any 2 criteria? No. Patient's initial sepsis screen is negative. Does the patient have a suspected source of infection? No. Patient's initial sepsis screen is negative. Risk Assessment: Do you want to hurt yourself or someone else? Patient reports no desire to harm self or others. Onset of symptoms was March 01, 2024. 18:46 Method Of Arrival: Ambulatory ll1 18:46 Acuity: GINA 3 ll1 Historical: - Allergies: 18:47 Codeine; ll1 18:47 Tramadol HCl; ll1 - Home Meds: 18:47 None [Active]; ll1 - PMHx: 18:47 diabetes mellitus; ll1 - PSHx: 18:47 Cholecystectomy; ll1 - Immunization history:: Adult Immunizations up to date. - Infectious Disease History:: Denies. - Social history:: Smoking status: Patient denies any tobacco usage or history of. Screenin:00 [facility] ED Fall Risk Assessment (Adult) History of falling in the last 3 months, jj7 including since admission No falls in past 3 months (0 pts) Confusion or Disorientation No (0 pts) Intoxicated or Sedated No (0 pts) Impaired Gait No (0 pts) Mobility Assist Device Used No (0 pt) Altered Elimination No (0 pt) Score/Fall Risk Level 0 - 2 = Low Risk Oriented to surroundings, Maintained a safe environment, Educated pt \T\ family on fall prevention, incl call for assistance when getting out of bed, Assessed \T\ reinforced patient's understanding of fall precautions. Abuse screen: Denies threats or abuse. Nutritional screening: No deficits noted. Tuberculosis screening: No symptoms or risk factors identified. Assessment: 19:00 General: Appears in no apparent distress. comfortable, Behavior is calm, cooperative, jj7 appropriate for age. Pain: Complains of pain in back and abdomen. GI: Abd is soft Abdomen is tender to palpation in left upper quadrant and left lower quadrant Reports lower abdominal pain. Vital Signs: 18:46 BP 154 / 87; Pulse 111; Resp 18; Temp 97.2; Pulse Ox 97% ; Pain 10/10; ll1 19:00 BP 130 / 103; Pulse 101; Resp 19; Pulse Ox 98% ; jj7 20:00 BP 123 / 70; Pulse 99; Resp 17; Pulse Ox 97% ; jj7 20:30 BP 132 / 71; Pulse 90; Resp 18; Pulse Ox 98% ; jj7 21:25 BP 128 / 75; Pulse 91; Resp 17; Temp 97.6; Pulse Ox 97% ; jj7 18:46 Pain Scale: Adult ll1 ED Course: 18:42 Patient arrived in ED. mg5 18:43 Maryuri Sterling PA-C is PHCP. sb4 18:43 Man Person DO is Attending Physician. sb4 18:47 Triage completed. ll1 19:00 Patient has correct armband on for positive identification. Placed in gown. Bed in low jj7 position. Call light in reach. Side rails up X2. Provided Education on: USE OF CALL DUMONT. Client placed on continuous cardiac and pulse oximetry monitoring. NIBP monitoring applied. panel monitor on. Warm blanket given. 19:20 Inserted saline lock: 24 gauge in right forearm, using aseptic technique. rs5 19:37 Linda Simons, RODERICK is Primary Nurse. jj7 20:30 Blood Culture Adult (2) Sent. jj7 20:30 Urinalysis w/ reflexes Sent. jj7 20:52 CT Abd/Pelvis - IV Contrast Only In Process Unspecified. EDMS 21:25 No provider procedures requiring assistance completed. intact, bleeding controlled, No jj7 redness/swelling at site. Pressure dressing applied. Administered Medications: 19:25 Drug: Ketorolac IVP 15 mg IVP once Route: IVP; Site: right antecubital; rs5 20:00 Follow up: Response: Marked relief of symptoms; Pain is decreased jj7 19:25 Drug: NS 0.9% IV 1000 ml IV at 1 bolus Per protocol; 1000 mL bolus Route: IV; Rate: 1 rs5 bolus; Site: right antecubital; 21:25 Follow up: IV Status: Completed infusion jj7 :25 Drug: Rocephin IV 1 grams IV at calculated rate once; Given slow IV push per pharmacy jj7 instructions Route: IV; Rate: calculated rate; Site: right forearm; 21:31 Follow up: IV Status: Completed infusion jj7 Medication: 19:00 VIS not applicable for this client. jj7 Outcome: 21:06 Discharge ordered by sb4 21: Discharged to home ambulatory, with family, jj7 : Condition: improved 21:25 Discharge instructions given to patient, Instructed on discharge instructions, medication usage, Demonstrated understanding of instructions, medications, Prescriptions given X 3, 21:25 Patient left the ED. jj7 Addendum: 03/08/2024 08:47 Addendum: Culture Results: Positive urine culture. Bacteria is resistant to, has s s intermediate sensitivity, or is not tested against prescribed antibiotics. Report given to HARRY for further evaluation and then to machinist 2nd shift for follow up with patient. Phone call Attempt #1 Called and spoke with patient who states she does not have a primary care doctor that she plans to follow up with and is still having pain. 09:00 Addendum: Culture Results: Positive urine culture. Bacteria is resistant to, has s s intermediate sensitivity, or is not tested against prescribed antibiotics. Report given to HARRY for further evaluation and then to machinist 2nd shift for follow up with patient. Phone call Attempt #2 JEANNIE Ramos recommends to stop Cipro. Augmentin 875/125 PO Q12 x 10 days and Levofloxacin 750 mg PO DAILY x 5 days called in. Called and spoke with patient who verbalizes understanding new plan of care and follow up instructions. Signatures: Dispatcher [employer] EDME Sera Ham RN RN ss Jihan Ledesma RN RN ll1 Linda Simons RN RN jj7 Maryuri Sterling PA-Del PA-C anita4 Arnold Arzate RN RN rs5 Rhonda Gillespie mg5 Corrections: (The following items were deleted from the chart) 03/04 21:38 21:37 Patient left the ED. jj7 jj7
--- NOTE | 2024-03-04 21:07 | EDPHYS ---
Physician Documentation [facility] Name: Myla Tejeda Age: 53 yrs Sex: Female : 1970 Arrival Date: 03/04/2024 Time: 18:38 Bed 6 Private MD: ED Physician Man Person HPI: 03/04 18:50 This 53 yrs old Black Female presents to ER via Ambulatory with complaints of Fever, sb4 abdominal pain. 18:58 patient reports malaise, body aches, fatigue, intermittent fever, abdominal pain, sb4 nausea, vomiting x 3 days. she denies any URI symptoms. denies any known sick contacts. has been taking ibuprofen with minimal relief in symptoms. reports history of diabetes but does not take any medications. denies any history of kidney stones or diverticulitis. Historical: - Allergies: 18:47 Codeine; ll1 18:47 Tramadol HCl; ll1 - Home Meds: 18:47 None [Active]; ll1 - PMHx: 18:47 diabetes mellitus; ll1 - PSHx: 18:47 Cholecystectomy; ll1 - Immunization history:: Adult Immunizations up to date. - Infectious Disease History:: Denies. - Social history:: Smoking status: Patient denies any tobacco usage or history of. ROS: 18:58 Cardiovascular: Negative for chest pain, palpitations, and edema, sb4 18:58 Constitutional: Positive for body aches, fatigue, fever, malaise, 18:58 Abdomen/GI: Positive for abdominal pain, nausea, vomiting, and diarrhea, 18:58 All other systems are negative, Exam: 18:59 Constitutional: This is a well developed, well nourished patient who is awake, alert, sb4 and in no acute distress. Head/Face: Normocephalic, atraumatic. Eyes: Extra-ocular motions intact. Periorbital areas with no swelling, redness, or edema. ENT: Mucous membranes moist. Respiratory: Lungs have equal breath sounds bilaterally, clear to auscultation and percussion. No rales, rhonchi or wheezes noted. No increased work of breathing, no retractions or nasal flaring. Skin: Warm, dry with normal turgor. Normal color with no rashes, no lesions, and no evidence of cellulitis. 18:59 Cardiovascular: Rate: tachycardic, Rhythm: regular, 18:59 Abdomen/GI: Inspection: abdomen appears normal, Bowel sounds: normal, Palpation: soft, mild abdominal tenderness, in the left lower quadrant, 18:59 Back: CVA tenderness, that is mild, is noted on the left, Vital Signs: 18:46 BP 154 / 87; Pulse 111; Resp 18; Temp 97.2; Pulse Ox 97% ; Pain 10/10; ll1 19:00 BP 130 / 103; Pulse 101; Resp 19; Pulse Ox 98% ; jj7 20:00 BP 123 / 70; Pulse 99; Resp 17; Pulse Ox 97% ; jj7 20:30 BP 132 / 71; Pulse 90; Resp 18; Pulse Ox 98% ; jj7 21:25 BP 128 / 75; Pulse 91; Resp 17; Temp 97.6; Pulse Ox 97% ; jj7 18:46 Pain Scale: Adult ll1 MDM: 18:44 Patient medically screened. sb4 21:05 Data reviewed: vital signs, nurses notes, lab test result(s), radiologic studies, and sb4 as a result, I will discharge patient. Counseling: I had a detailed discussion with the patient and/or guardian regarding the historical points, exam findings, and any diagnostic results supporting the discharge/admit diagnosis, lab results, radiology results, the need for outpatient follow up, a urologist, to return to the emergency department if symptoms worsen or persist or if there are any questions or concerns that arise at home. 03/04 18:49 Order name: Blood Culture Adult (2) sb4 03/04 18:49 Order name: CBC with Diff; Complete Time: 19:57 sb4 03/04 18:49 Order name: CMP; Complete Time: 19:51 sb4 03/04 18:49 Order name: Lactate w/ 2H reflex if indic.; Complete Time: 19:49 sb4 03/04 18:49 Order name: Protime (+inr); Complete Time: 19:49 sb4 03/04 18:49 Order name: Ptt, Activated; Complete Time: 19:49 sb4 03/04 18:49 Order name: Urinalysis w/ reflexes; Complete Time: 20:45 sb4 03/04 18:49 Order name: SARS RAPID; Complete Time: 19:51 sb4 03/04 18:49 Order name: Flu; Complete Time: 19:51 sb4 03/04 20:46 Order name: Urine Culture EDWV 03/04 18:49 Order name: CT Abd/Pelvis - IV Contrast Only; Complete Time: 21:01 sb4 03/04 18:49 Order name: Cardiac monitoring; Complete Time: 19:25 sb4 03/04 18:49 Order name: IV Saline Lock - Large Bore; Complete Time: 19:25 sb4 03/04 18:49 Order name: Labs collected and sent; Complete Time: 19:25 sb4 03/04 18:49 Order name: O2 Per Protocol; Complete Time: 19:25 sb4 03/04 18:49 Order name: O2 Sat Monitoring; Complete Time: 19:25 sb4 03/04 18:49 Order name: Vital Signs; Complete Time: 19:25 sb4 Administered Medications: 19:25 Drug: Ketorolac IVP 15 mg IVP once Route: IVP; Site: right antecubital; rs5 20:00 Follow up: Response: Marked relief of symptoms; Pain is decreased jj7 19:25 Drug: NS 0.9% IV 1000 ml IV at 1 bolus Per protocol; 1000 mL bolus Route: IV; Rate: 1 rs5 bolus; Site: right antecubital; 21:25 Follow up: IV Status: Completed infusion jj7 21:25 Drug: Rocephin IV 1 grams IV at calculated rate once; Given slow IV push per pharmacy jj7 instructions Route: IV; Rate: calculated rate; Site: right forearm; 21:31 Follow up: IV Status: Completed infusion jj7 Disposition: 18:50 I was immediately available on-site in the Emergency Department for consultation in the ms3 care of the patient. Disposition Summary: 03/04/24 21:06 Discharge Ordered Notes: Location: Home sb4 Problem: new sb4 Symptoms: have improved sb4 Condition: Stable sb4 Diagnosis - UTI/ Urinary tract infection, site not specified sb4 - Calculus of kidney sb4 Followup: sb4 - With: Emergency Department - When: As needed - Reason: Fever > 102 F, Worsening of condition Discharge Instructions: - Discharge Summary Sheet sb4 - Kidney Stones sb4 - Pyelonephritis, Adult, [id number] sb4 Forms: - Antibiotic Education sb4 - Patient Portal Instructions sb4 - Leadership Thank You Letter sb4 Prescriptions: - ketorolac 10 mg Oral tablet - take 1 tablet ORAL route every 6 hours for 3 days as needed for pain; 12 sb4 tablet; Refills: 0, Product Selection Permitted - Zofran 4 mg Oral tablet - take 1 tablet ORAL route every 6 hours As needed; 12 tablet; Refills: 0, sb4 Product Selection Permitted - Cipro 500 mg Oral Tablet - take 1 tablet ORAL route every 12 hours for 7 days; 14 tablet; Refills: 0, sb4 Product Selection Permitted Signatures: Dispatcher [employer] EDMS Jihan Ledesma, RN RN ll1 Man Person DO DO ms3 Linda Simons RN RN jj7 Maryuri Sterling PASkyla PASkyla sb4 Arnold Arzate RN RN rs5 Corrections: (The following items were deleted from the chart) 18:50 18:50 This 53 yrs old Black Female presents to ER via Ambulatory with complaints of sb4 Fever. sb4
[2024-03-04] MEDS ORDERED: CEFTRIAXONE 1000 MG/VIAL ONE (21:20)
[2024-03-05 09:55] VITALS: BP 128/75; TEMP 97.6; O2SAT 97
== END 2024-03-04 21:37 | disposition home or self-care (01) ==
LOC: ER 18:38
DX: N39.0 Urinary tract infection, site not specified (principal); N20.0 Calculus of kidney; E11.9 Type 2 diabetes mellitus without complications
CPT/HCPCS: 36415; 74177; 80053; 81001; 83605; 85025; 85610; 85730; 87040; 87077; 87086; 87088; 87186; 87804; 87811; 99285; J0696; J7030; Q9967